=== PATIENT | female | born 1965 | race African-American/Black ===

== ENCOUNTER 2016-10-24 13:29 | Emergency (ER) | payer MEDICAID ==
[~2016-10-24] VITALS: Ht 167.6 cm; Wt 77.0 kg
[2016-10-24] MEDS ORDERED: METO50TA5 PO (14:32)
[2016-10-24] MEDS ORDERED: AMLO10TA80 PO (14:32)
[2016-10-24] MEDS ORDERED: TETANUS, DIPHTHERIA, PERTUSSIS VAC/PF 0.5ML (>7YR OLD) IM ONE (20:30)
[2016-10-24] MEDS ORDERED: CLONIDINE 0.2MG TABLET PO ONE (21:15)
[2016-10-24 21:51] VITALS: BP 166/91
== END 2016-10-24 21:52 | disposition home or self-care (01) ==
LOC: ER 20:17
DX: Z23 Encounter for immunization (principal); I10 Essential (primary) hypertension; Z87.440 Personal history of urinary (tract) infections
CPT/HCPCS: 90471; 90715; 99283

== ENCOUNTER 2022-01-18 17:04 | Emergency (ER) | payer MEDICAID ==
[~2022-01-18] VITALS: Ht 167.6 cm; Wt 71.0 kg
[~2022-01-18 17:04] MED LIST: AMLO10TA80 PO; METO-539 PO
[2022-01-18] MEDS ORDERED: HYDRALAZINE 20MG/ML VIAL IV ONE (23:00)
[2022-01-19 00:19] LABS: BASOPHILS % 0.3 % (0.0-2.0); EOSINOPHILS % 2.5 % (0.0-5.0); HEMATOCRIT. 43.2 % (36.0-48.0); HEMOGLOBIN. 14.3 g/dL (12.0-16.0); LYMPHOCYTES % 34.8 % (20.0-50.0); MEAN CORPUSCULAR HEMOGLOBIN 30.2 pg (28.0-32.0); MEAN CORPUSCULAR VOLUME 91.1 fL (81.0-99.0); MONOCYTES % 6.3 % (2.0-8.0); NEUTROPHILS % 56.1 % (40.0-76.0); PLATELET 350 x1000/uL (130-400); RED BLOOD CELL COUNT 4.74 mill/uL (4.2-5.4)
[2022-01-19 00:25] LABS: CHLORIDE 110 mEq/L (98-107)
[2022-01-19] MEDS ORDERED: METO-539 MT (01:17)
[2022-01-19] MEDS ORDERED: AMLO10TA80 MT (01:17)
[2022-01-19 01:30] VITALS: BP 159/85
== END 2022-01-19 01:48 | disposition home or self-care (01) ==
LOC: ER 17:04
DX: I10 Essential (primary) hypertension (principal)
CPT/HCPCS: 36415; 80053; 85025; 96374; 99285; J0360

== ENCOUNTER 2022-06-25 12:59 | Emergency (ER) | payer MEDICAID ==
[~2022-06-25] VITALS: Ht 167.6 cm; Wt 81.0 kg
[~2022-06-25 12:59] MED LIST changes: +AMLO10TA80 MT; +METO-539 MT
[2022-06-25 13:25] VITALS: BP 177/85
[2022-06-25] MEDS ORDERED: IBUP-2028 MT (16:50)
== END 2022-06-25 17:00 | disposition home or self-care (01) ==
LOC: ER 12:59
DX: B35.3 Tinea pedis (principal); M79.675 Pain in left toe(s); I10 Essential (primary) hypertension
CPT/HCPCS: 99281

== ENCOUNTER 2023-08-23 07:28 | Emergency (ER) | payer MEDICAID, OTHER ==
[~2023-08-23] VITALS: Ht 167.6 cm; Wt 70.5 kg
[~2023-08-23 07:28] MED LIST changes: +IBUP-2028 MT
[2023-08-23 07:41] VITALS: O2SAT 100
[2023-08-23 08:26] LABS: CHLORIDE 103 mEq/L (98-107); POTASSIUM 3.2 mEq/L (3.5-5.1); SODIUM 138 mEq/L (136-145)
[2023-08-23 08:27] LABS: CARBON DIOXIDE 30 mEq/L (21-32)
[2023-08-23 08:28] LABS: CALCIUM 10.8 mg/dL (8.7-10.4)
[2023-08-23 08:32] LABS: CREATININE 0.9 mg/dL (0.6-1.0); GLUCOSE 101 mg/dL (70-105); UREA NITROGEN BLOOD 15 mg/dL (9-23)
[2023-08-23 08:33] LABS: BASOPHILS % 0.6 % (0.0-2.0); EOSINOPHILS % 2.6 % (0.0-5.0); HEMATOCRIT. 41.2 % (36.0-48.0); LYMPHOCYTES % 24.6 % (20.0-50.0); MEAN CORPUSCULAR HEMOGLOBIN 31.3 pg (28.0-32.0); MEAN CORPUSCULAR VOLUME 92.2 fL (81.0-99.0); MEAN PLATELET VOLUME 6.7 fl (7.4-10.4); MONOCYTES % 6.9 % (2.0-8.0); NEUTROPHILS % 65.3 % (40.0-76.0); PLATELET 395 x1000/uL (130-400); RED BLOOD CELL COUNT 4.46 mill/uL (4.2-5.4); RED CELL DISTRIBUTION WIDTH 15.1 % (11.6-14.6); WHITE BLOOD COUNT 8.7 x1000/uL (4.5-11.0)
[2023-08-23] MEDS ORDERED: METO-539 PO (11:01)
[2023-08-23 11:15] VITALS: BP 140/78; PULSE 65; RESP 16; TEMP 98.3
[2023-08-23] MEDS: METOPROLOL TARTRATE 50MG TABLET PO ONE (11:15)
== END 2023-08-23 11:30 | disposition home or self-care (01) ==
LOC: ER 07:45
DX: I10 Essential (primary) hypertension (principal)
CPT/HCPCS: 36415; 80048; 85025; 99283